=== PATIENT | male | born 1995 | race Caucasian/White ===

== ENCOUNTER 2018-06-27 00:06 | Emergency (ER) | payer SELFPAY ==
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
[2018-06-27 00:38] VITALS: TEMP 98.4
[2018-06-27] MEDS ORDERED: CHLORHEXIDINE GLUCONATE 4 % 15 ML UD TOP ONE (00:38)
[2018-06-27 00:59] VITALS: BP 124/70; O2SAT 95
== END 2018-06-27 00:59 | disposition home or self-care (01) ==
LOC: ER 00:06
DX: Z02.89 Encounter for other administrative examinations (principal); R04.0 Epistaxis; F10.129 Alcohol abuse with intoxication, unspecified; Z87.891 Personal history of nicotine dependence; Y04.0XXA Assault by unarmed brawl or fight, initial encounter; Y92.9 Unspecified place or not applicable